=== PATIENT | female | born 1990 | race Caucasian/White ===

== ENCOUNTER 2018-12-11 09:09 | Inpatient (IN) ==
[2018-12-11] MEDS ORDERED: OXYTOCIN 30 UNITS/500 ML BAG IV PRN ×2 (10:39→18:37)
--- NOTE | 2018-12-11 10:46 | Obstetrical Progress Note ---
Date of Service December 11, 2018 Subjective Admit Note 28 F P2002 at 40.4 weeks admitted for induction of labor for post-dates . GBS is negative. Cervix 3/70/-2/vertex/mid-position/soft. EFW 7.5 lbs. AROM with clear fluid. Will anticipate normal delivery. Results & Data Vital Signs (Past 12 Hours) Vital Signs Temp Pulse Resp BP 12/11/18 09:29 36.5 C 72 20 127/81 12/11/18 09:19 72 127/81 12/11/18 09:16 36.5 C 20
[2018-12-11 11:16] LABS: Hematocrit (blood only) 38.1 % (37-47); Hemoglobin 12.8 g/dL (12.0-16.0); Mean Corpuscular Hemoglobin 30.8 pg (25-34); Mean Corpuscular Volume 91.6 fL (80-100); Mean Platelet Volume 10.1 fL (7.4-10.4); Platelet Count 239 K/uL (130-400); RDW Coefficient of Variation 14.1 % (11.5-14.5); Red Blood Count 4.16 M/uL (4.2-5.4); White Blood Count 7.12 K/uL (4.8-10.8)
[2018-12-11 11:22] LABS: Mean Corpuscular Hgb Conc 33.6 g/dL (32-36)
--- NOTE | 2018-12-11 14:30 | Obstetrical Progress Note ---
Date of Service December 11, 2018 Physical Exam Genitourinary: Manual OB Exam: + cervical dilation 5 cm, + cervical effacement 70% and + station -2 OB Exam Monitor Tracing: + external FHT monitor used, + external uterine monitor used and + category I Results & Data Vital Signs (Past 12 Hours) Vital Signs Temp Pulse Resp BP 12/11/18 14:21 36.6 C 75 20 124/71 12/11/18 11:53 36.6 C 65 20 118/75 12/11/18 09:29 36.5 C 72 20 127/81 12/11/18 09:19 72 127/81 12/11/18 09:16 36.5 C 20
--- NOTE | 2018-12-11 17:09 | Obstetrical Progress Note ---
Date of Service December 11, 2018 Physical Exam Genitourinary: Manual OB Exam: + cervical dilation 6 cm, + cervical effacement 90% and + station -1 OB Exam Monitor Tracing: + external FHT monitor used and + external uterine monitor used Results & Data Vital Signs (Past 12 Hours) Vital Signs Temp Pulse Resp BP 12/11/18 16:06 36.9 C 86 20 122/70 12/11/18 14:21 36.6 C 75 20 124/71 12/11/18 11:53 36.6 C 65 20 118/75 12/11/18 09:29 36.5 C 72 20 127/81 12/11/18 09:19 72 127/81 12/11/18 09:16 36.5 C 20
[2018-12-11] MEDS ORDERED: fentaNYL citrate 100 MCG/2 ML VIAL ONE (18:36)
[2018-12-11] MEDS ORDERED: BUPIVACAINE 0.25% 30 ML VIAL ONE (18:36)
[2018-12-11] MEDS ORDERED: ePHEDrine sulfate 50 MG/ML AMP ONE (18:36)
[2018-12-11] MEDS ORDERED: fentaNYL 2MCG/ML ROPIV 1.25MG/ML 100 ML BAG EPI ONE (18:37)
[2018-12-11] MEDS ORDERED: fentaNYL 2MCG/ML ROPIV 1.25MG/ML 100 ML BAG EPI PRN (18:41)
[2018-12-11] MEDS ORDERED: NALOXONE HCL 1 MG in SODIUM CHLORIDE 0.9% 1000ML 1,000 ML IV PRN (18:41)
[2018-12-11] MEDS ORDERED: NALOXONE HCL 0.4 MG/1 ML VIAL/CARP IV PRN (18:41)
[2018-12-11] MEDS ORDERED: DiphenhydrAMINE HCL 50 MG/ML VIAL IV PRN (18:41)
[2018-12-11] MEDS ORDERED: ePHEDrine sulfate 50 MG/ML AMP IV PRN (18:41)
[2018-12-11] MEDS ORDERED: NALBUPHINE HCL INJ 10 MG/ML AMP IV PRN (18:41)
--- NOTE | 2018-12-11 18:43 | Anesthesiology Consultation ---
Date of Service December 11, 2018 Assessment & Plan (1) Encounter for pre-operative examination: Chart Review Chart Review: Patient NOT seen in Pre Admission Testing and Acceptable Risk for Labor Epidural Consults Requested none History Height/Weight Height: 5 ft 7 in Weight: 83.007 kg Allergies Allergy/AdvReac Type Severity Reaction Status Date / Time No Known Allergies Allergy Unverified 12/11/18 07:22 Medications Home Medications Medication Instructions Recorded Confirmed Last Taken PNV cmb#95-ferrous fumarate-FA 1 tab PO DAILY 12/11/18 12/11/18 12/11/18 07:00 [] Past Medical History healthy Exercise / Class Metabolic Activity II 4-5 Yardwork/Stairs/Walk up hill Past Family History Family History Father Myocardial infarction Past Surgical History Surgical History Hx of LASIK 2018 Past Anesthesia History No Hx of Anesthesia Complications and No Family Hx of Anesthesia Complications History of PONV No Hx of PONV and No Hx of Motion Sickness Social History Smoking Status: Never smoker Do You Dip or Chew Tobacco: No Hx Alcohol Use: No Hx Substance Use: No Physical Exam Vital Signs Last Vital Signs Temp 36.9 C 12/11/18 18:25 Pulse 78 12/11/18 19:06 Resp 20 12/11/18 18:25 BP 127/72 12/11/18 19:06 Pulse Ox 98 12/11/18 19:06 Testing Laboratory Results 12/11/18 10:59
[2018-12-11] MEDS ORDERED: LACTATED RINGER'S 1,000 ML IV ONE (18:55)
--- NOTE | 2018-12-11 20:14 | Obstetrical Progress Note ---
Date of Service December 11, 2018 Physical Exam Genitourinary: OB Exam Abdomen: + vertex Manual OB Exam: + cervical dilation 8 cm, + cervical effacement 100%, + station 0 and + amniotic fluid OB Exam Monitor Tracing: + external FHT monitor used, + external uterine monitor used, + category I and + normal FHT variability Results & Data Vital Signs (Past 12 Hours) Vital Signs Temp Pulse Resp BP Pulse Ox 12/11/18 20:06 92 H 99 12/11/18 20:05 92 H 91 12/11/18 20:01 80 98 12/11/18 19:58 88 128/66 12/11/18 19:56 89 100 12/11/18 19:51 91 H 100 12/11/18 19:46 80 100 12/11/18 19:45 20 12/11/18 19:42 75 128/66 12/11/18 19:41 82 99 12/11/18 19:38 81 93 12/11/18 19:36 75 125/72 99 12/11/18 19:35 36.7 C 20 12/11/18 19:31 77 132/72 99 12/11/18 19:30 18 12/11/18 19:26 72 126/72 98 12/11/18 19:25 18 12/11/18 19:21 77 98 12/11/18 19:20 80 18 128/69 12/11/18 19:18 68 141/82 H 12/11/18 19:16 76 134/77 98 12/11/18 19:14 74 20 131/74 12/11/18 19:12 77 20 126/68 12/11/18 19:11 77 100 12/11/18 19:10 87 20 127/67 12/11/18 19:08 80 125/68 12/11/18 19:06 78 127/72 98 12/11/18 19:04 80 133/72 12/11/18 19:01 89 99 12/11/18 18:56 84 97 12/11/18 18:51 74 98 12/11/18 18:46 85 97 12/11/18 18:25 36.9 C 86 20 110/57 L 12/11/18 17:50 37.0 C 88 16 117/66 12/11/18 16:06 36.9 C 86 20 122/70 12/11/18 14:21 36.6 C 75 20 124/71 12/11/18 11:53 36.6 C 65 20 118/75 12/11/18 09:29 36.5 C 72 20 127/81 12/11/18 09:19 72 127/81 12/11/18 09:16 36.5 C 20
[2018-12-11] MEDS ORDERED: Nursing to Pharmacy Communication ONE (21:44)
[2018-12-11] MEDS ORDERED: LACTATED RINGER'S 1,000 ML IV SCH (22:00)
--- NOTE | 2018-12-12 00:25 | Delivery Summary ---
Vaginal Delivery Summary Date of Service December 12, 2018 Vaginal Delivery Summary Delivery Note live male CATALINA over intact perineum with intact perineum. Delayed cord clamping followed by cord blood and spontaneous delivery of intact placenta. No tears. EBL 100 ml. Final sponge and instrument count are correct. Straight cath 500 ml clear urine. Mom and baby stable.
[2018-12-12] MEDS ORDERED: HYDROCORTISONE ACETATE 25 MG SUPP PR PRN (00:27)
[2018-12-12] MEDS ORDERED: DIPHTHERIA/TETANUS/PERTUSSIS 0.5 ML SYR/VIAL IM ONE (00:27)
[2018-12-12] MEDS ORDERED: ACETAMINOPHEN 325 MG TAB PO PRN (00:27)
[2018-12-12] MEDS ORDERED: OXYTOCIN 30 UNITS/500 ML BAG IV PRN (00:27)
[2018-12-12] MEDS ORDERED: SUPERCREAM 0.870% 15 GM JAR EXT PRN (00:27)
--- NOTE | 2018-12-12 02:28 | Anesthesia Procedure Note ---
Date of Service December 12, 2018 Anesthesia Post Epidural Note Vital Signs Vital Signs: Temp Pulse Resp BP Pulse Ox 36.7 C 77 20 126/64 95 12/12/18 00:15 12/12/18 02:18 12/12/18 01:45 12/12/18 02:18 12/12/18 00:07 Pain Intensity Bilateral Back: Pain Intensity: 0 Notes Mental Status: alert / awake / arousable Patient Amnestic to Procedure: No Nausea / Vomiting: adequately controlled Pain: adequately controlled Airway Patency, RR, SpO2: stable & adequate BP & HR: stable & adequate Hydration State: stable & adequate Neuraxial Anesthesia: was administered and sensory block is resolving Anesthetic Complications: no major complications apparent and Pt Satisfied with anesthetic care Epidural: Removed without complications and With tip intact
[2018-12-12] MEDS: BENZOCAINE 20% AER SPR 82.5 GM CAN EXT PRN ×2 (02:36→13:40)
[2018-12-12] MEDS: IBUPROFEN 600 MG TAB PO PRN ×2 (04:29→21:17)
[2018-12-12] MEDS: DOCUSATE SODIUM 100 MG CAP PO SCH ×2 (07:55→21:11)
[2018-12-12] MEDS: PRENATAL VITAMIN 1 TAB PO SCH (07:55)
[2018-12-12] MEDS ORDERED: NON-FORMULARY MEDICATION (Pnv Cmb#95-Ferrous Fumarate-Fa [Prenatal] 1 TAB) PO SCH (09:00)
--- NOTE | 2018-12-12 09:07 | Obstetrical Progress Note ---
Date of Service December 12, 2018 Subjective Attempted to see her this morning, she was not in the room I came back , now she is in her room but on the phone and asked me to come later Results & Data Vital Signs (Past 12 Hours) Vital Signs Temp Pulse Pulse Resp BP BP Pulse Ox 12/12/18 07:45 36.6 C 76 18 105/64 97 12/12/18 03:50 36.9 C 68 20 116/72 12/12/18 02:50 36.9 C 77 20 126/64 12/12/18 02:18 77 126/64 12/12/18 02:15 77 20 126/64 12/12/18 01:48 73 133/63 12/12/18 01:45 73 20 133/63 12/12/18 01:18 75 121/56 L 12/12/18 01:15 75 18 121/56 L 12/12/18 01:00 76 20 157/74 H 12/12/18 00:58 76 157/74 H 12/12/18 00:45 80 20 110/53 L 12/12/18 00:43 80 110/53 L 12/12/18 00:30 87 18 133/62 12/12/18 00:28 87 133/62 12/12/18 00:15 36.7 C 87 20 133/62 12/12/18 00:07 100 H 95 12/12/18 00:02 108 H 96 12/11/18 23:59 125 H 94 12/11/18 23:57 128 H 75 L 12/11/18 23:53 129 H 82 L 12/11/18 23:52 123 H 93 12/11/18 23:47 118 H 93 12/11/18 23:42 119 H 84 L 12/11/18 23:37 114 H 96 12/11/18 23:32 117 H 94 12/11/18 23:31 114 H 90 12/11/18 23:29 112 H 157/64 H 12/11/18 23:26 108 H 97 12/11/18 23:21 104 H 98 12/11/18 23:20 110 H 92 12/11/18 23:16 108 H 98 12/11/18 23:13 110 H 153/73 H 12/11/18 23:11 110 H 96 12/11/18 23:06 116 H 97 12/11/18 23:01 99 H 96 12/11/18 23:00 20 12/11/18 22:56 109 H 96 12/11/18 22:51 104 H 97 12/11/18 22:46 105 H 96 12/11/18 22:41 118 H 97 12/11/18 22:36 104 H 96 12/11/18 22:31 113 H 97 12/11/18 22:27 36.7 C 20 12/11/18 22:26 91 H 97 12/11/18 22:24 114 H 93 12/11/18 22:21 98 H 98 12/11/18 22:16 108 H 97 12/11/18 22:13 90 127/65 12/11/18 22:11 99 H 98 12/11/18 22:08 96 H 93 12/11/18 22:06 90 98 12/11/18 22:01 90 98 12/11/18 22:00 18 12/11/18 21:56 87 97 12/11/18 21:51 91 H 97 12/11/18 21:46 91 H 97 12/11/18 21:44 87 110/67 12/11/18 21:41 89 96 12/11/18 21:36 93 H 96 12/11/18 21:31 95 H 98 12/11/18 21:30 18 12/11/18 21:29 96 H 134/76 12/11/18 21:26 94 H 97 12/11/18 21:21 107 H 99 12/11/18 21:16 88 98 12/11/18 21:13 103 H 127/75 12/11/18 21:11 89 98
--- NOTE | 2018-12-12 15:24 | Obstetrical Progress Note ---
Date of Service December 12, 2018 Subjective Patient is seen and examined. She feels well, no complaints. Likes to be discharged after MN ( 24 hours) Ambulating without dizziness Voiding without difficulty Tolerating regular diet with out N&V Bleeding is minimal No fever/ chills/ CP/ SOB/ N&V/ Leg pain Breast feeding without problems Vital Signs Temp Pulse Resp BP Pulse Ox 12/12/18 12:00 36.5 C 70 18 123/78 99 12/12/18 07:45 36.6 C 76 18 105/64 97 12/12/18 03:50 36.9 C 68 20 116/72 Lab Results 12/11/18 Range/Units 10:59 WBC 7.12 (4.8-10.8) K/uL RBC 4.16 L (4.2-5.4) M/uL Hgb 12.8 (12.0-16.0) g/dL Hct 38.1 (37-47) % MCV 91.6 (80-100) fL MCH 30.8 (25-34) pg MCHC 33.6 (32-36) g/dL RDW Std Deviation 47.0 H (36.4-46.3) fL RDW Coeff of Carmen 14.1 (11.5-14.5) % Plt Count 239 (130-400) K/uL MPV 10.1 (7.4-10.4) fL PE: General: Alert, orientedx3, NAD Abd: soft, NT, fundus firm, below Umbilicus Perineum intact, Lochia rubra minimal Ext; NT, no edema AP: 28 yo s/p , ppd# 1 VSS Afebrile doing well Continue routine care All questions were answered Discussed when to call D/C home after MN if baby would be discharged Results & Data Vital Signs (Past 12 Hours) Vital Signs Temp Pulse Resp BP Pulse Ox 12/12/18 12:00 36.5 C 70 18 123/78 99 12/12/18 07:45 36.6 C 76 18 105/64 97 12/12/18 03:50 36.9 C 68 20 116/72
[2018-12-12 18:24] LABS: Hematocrit (blood only) 36.2 % (37-47); Hemoglobin 12.3 g/dL (12.0-16.0)
[2018-12-13 06:28] LABS: Hemoglobin 11.4 g/dL (12.0-16.0); Mean Corpuscular Hemoglobin 31.1 pg (25-34); Mean Corpuscular Hgb Conc 33.5 g/dL (32-36); Mean Corpuscular Volume 92.6 fL (80-100); Mean Platelet Volume 10.1 fL (7.4-10.4); Platelet Count 245 K/uL (130-400); RDW Coefficient of Variation 14.3 % (11.5-14.5); Red Blood Count 3.67 M/uL (4.2-5.4)
[2018-12-13] MEDS: PRENATAL VITAMIN 1 TAB PO SCH (08:28)
[2018-12-13] MEDS: DOCUSATE SODIUM 100 MG CAP PO SCH (08:28)
--- NOTE | 2018-12-13 09:01 | Obstetrical Progress Note ---
Date of Service December 13, 2018 Assessment & Plan (1) Normal vaginal delivery: PPD #2 pt doing well d/c home with instructions Subjective Ambulation: ambulating normally Voiding: no voiding problems Passing Gas:: Yes Diet Tolerance:: regular diet Lochia:: Small Feeding Type:: breast feeding Review of Systems All systems reviewed & are unremarkable except as noted in HPI & below Physical Exam Constitutional WD/WN, vitals as above well developed and well nourished Eyes PERRL, conjunctivae normal, anicteric sclerae Neck trachea midline, no thyromegaly Respiratory normal respiratory effort, lungs clear to auscultation Auscultation: no crackles, no rales and no wheezes Cardiovascular RRR, no murmur, no edema Gastrointestinal (Abdomen) normal bowel sounds, soft, nontender, no hepatosplenomegaly Uterus is below umbilicus Musculoskeletal no cyanosis or clubbing, extremities motor strength 5/5 Skin no rashes, warm and dry Neurologic patellar DTR's 2+ bilat, sensation intact Psychiatric A+Ox3, euthymic affect Genitourinary normal external appearance Results & Data Vital Signs (Past 12 Hours) Vital Signs Temp Pulse Resp BP 12/12/18 23:40 36.6 C 70 20 104/65
[2018-12-13 18:38] VITALS: BP 125/80; PULSE 82; TEMP 99; O2SAT 98
[2018-12-13] MEDS ORDERED: bisacodyL 5 MG TABEC PO SCH (20:00)
[2018-12-14] MEDS ORDERED: bisacodyL 10 MG SUPP PR PRN (07:00)
== END 2018-12-13 17:45 | disposition home or self-care (01) | DRG 807 ==
LOC: 4S1 09:09 → 4S2 12-12 02:50

== ENCOUNTER 2021-05-10 14:06 | Inpatient (IN) ==
[2021-05-10] MEDS ORDERED: OXYTOCIN 30 UNITS/500 ML BAG IV PRN ×3 (14:26→19:12)
--- NOTE | 2021-05-10 14:46 | History & Physical Report ---
Date of Service May 10, 2021 Assessment & Plan (1) : (2) Normal vaginal delivery: Plan: Will start Oxytocin, antibiotics and plans epidural. anticipate normal delivery Admission and Anticipated Discharge Date Admission Date: May 10, 2021 History of Present Illness Chief Complaint: labor stalled at home Primary Care Provider: JJ PCP 30 F [id number] EDC 05-16-21 by dates from carpet layer. Her entire was with the hoop maker machine and she presented to L&D at [facility] after hoop maker machine called with lack of progress over 5 hours. She has had no GBS swab or Covid testing. Patient states she went into labor yesterday at 2:30 PM with SROM at 8:30 PM clear fluid. Allergies Allergy/AdvReac Type Severity Reaction Status Date / Time No Known Allergies Allergy Unverified 12/11/18 07:22 Home Medications Medication Instructions Recorded Confirmed Type vit no.95-ferrous 1 tab PO DAILY 12/11/18 12/11/18 History fumarate 28 mg-folic acid 800 mcg tablet () Patient History Surgical History Hx of LASIK 2018 Family History Father Myocardial infarction Social History Smoking Status: Never smoker Hx Alcohol Use: No Hx Substance Use: No Preferred Language: Tuvaluan Communication Ability: Effective Christian Education Director Required: No Beliefs That Will Affect Care: None marital status: Current Living Situation: Spouse Feels Safe at Home: Yes Assistive Devices: None 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 Review of Systems All systems reviewed & are unremarkable except as noted in HPI & below Physical Exam Constitutional: WD/WN, vitals as above comfortable Eyes: PERRL, conjunctivae normal, anicteric sclerae Respiratory: normal respiratory effort, lungs clear to auscultation Cardiovascular: RRR, no murmur, no edema Skin: no rashes, warm and dry Neurologic: patellar DTR's 2+ bilat, sensation intact Psychiatric: A+Ox3, euthymic affect Genitourinary: no vaginal lesions, no adnexal mass normal external appearance OB Exam Abdomen: + fundal height and + vertex Manual OB Exam: + cervical dilation 7 cm and 8 cm, + cervical effacement 90%, + station -1 and + amniotic fluid clear OB Exam Monitor Tracing: + external FHT monitor used, + external uterine monitor used, + category I and + normal FHT variability She says she has been ruptured with clear fluid since 8:50 PM yesterday. Results & Data ([facility]) Vital Signs (Past 12 Hours) Vital Signs Pulse BP 05/10/21 14:15 90 133/63 Monitoring External Monitor Cat 1
[2021-05-10] MEDS: LACTATED RINGER'S 1,000 ML IV PRN ×2 (14:52→17:25)
[2021-05-10 14:53] LABS: Hematocrit (blood only) 35.5 % (37-47); Hemoglobin 12.1 g/dL (12.0-16.0); Mean Corpuscular Hemoglobin 30.8 pg (25-34); Mean Corpuscular Hgb Conc 34.1 g/dL (32-36); Mean Corpuscular Volume 90.3 fL (80-100); Mean Platelet Volume 9.7 fL (7.4-10.4); Platelet Count 259 K/uL (130-400); RDW Coefficient of Variation 13.9 % (11.5-14.5); RDW Standard Deviation 46.4 fL (36.4-46.3); Red Blood Count 3.93 M/uL (4.2-5.4); White Blood Count 17.45 K/uL (4.8-10.8)
[2021-05-10] MEDS ORDERED: SODIUM CHLORIDE 0.9% INJ 10 ML VIAL ONE (14:56)
[2021-05-10] MEDS ORDERED: ePHEDrine sulfate 50 MG/ML AMP ONE (14:56)
[2021-05-10] MEDS ORDERED: BUPIVACAINE 0.25% 30 ML VIAL ONE (14:57)
[2021-05-10] MEDS ORDERED: fentaNYL citrate 100 MCG/2 ML VIAL ONE (14:57)
[2021-05-10] MEDS ORDERED: fentaNYL 2MCG/ML ROPIVACAINE 1.25MG/ML 100 ML BAG EPI ONE (14:57)
[2021-05-10] MEDS ORDERED: PENICILLIN G POTASSIUM 6 MU in DEXTROSE 5% 250 ML IV ONE (15:00)
[2021-05-10] MEDS ORDERED: NALOXONE HCL 1 MG in SODIUM CHLORIDE 0.9% 1000ML 1,000 ML IV PRN (17:14)
[2021-05-10] MEDS ORDERED: NALOXONE HCL 0.4 MG/1 ML VIAL/CARP IV PRN (17:14)
[2021-05-10] MEDS ORDERED: fentaNYL 2MCG/ML ROPIVACAINE 1.25MG/ML 100 ML BAG EPI PRN (17:14)
[2021-05-10] MEDS ORDERED: ePHEDrine sulfate 50 MG/ML AMP IV PRN (17:14)
[2021-05-10] MEDS ORDERED: diphenhydrAMINE 50 MG/ML VIAL IV PRN (17:14)
[2021-05-10] MEDS ORDERED: NALBUPHINE HCL INJ 10 MG/ML AMP IV PRN (17:14)
[2021-05-10] MEDS ORDERED: ONDANSETRON INJ 2 MG/ML 2 ML VIAL IV PRN (17:14)
--- NOTE | 2021-05-10 17:15 | Anesthesiology Consultation ---
Date of Service May 10, 2021 Assessment & Plan Chart Review Chart Review: Patient NOT seen in Pre Admission Testing and Acceptable Risk for Labor Epidural Consults Requested none ASA ASA2 Proposed Anesthesia Anesthesia Type: Labor Epidural Risk / Benefits Reviewed With: PT / POA / Parent / Guardian, Accepts Plan and Informed Consent Obtained History Height/Weight Height: 5 ft 6 in Weight: 86.035 kg Allergies Allergy/AdvReac Type Severity Reaction Status Date / Time No Known Allergies Allergy Verified 05/10/21 16:55 Medications Home Medications Medication Instructions Recorded Confirmed Last Taken prenat.vits,amy,kok-bddi-sjfdf 1 tab PO DAILY 05/10/21 05/10/21 05/09/21 08:00 Active Medications Generic Name Dose Route Start Last Admin Trade Name Freq PRN Reason Stop Dose Admin Lactated Ringer's 1,000 mls @ 125 mls/hr 05/10/21 14:26 05/10/21 15:44 Lr IV 05/12/21 14:25 125 mls/hr .Q8H PRN Infusion L&D Protocol Protocol Oxytocin 30 units in 500 mls @ 3 mls/hr 05/10/21 14:41 05/10/21 16:47 Pitocin IV 05/12/21 14:40 0.18 units/hr .Q24H PRN 3 mls/hr Labor Induction/Augmentation Titration Protocol 0.18 UNITS/HR Exercise / Class Metabolic Activity II 4-5 Yardwork/Stairs/Walk up hill Past Family History Family History Father Myocardial infarction Past Surgical History Surgical History Hx of LASIK 2018 Past Anesthesia History No Hx of Anesthesia Complications and No Family Hx of Anesthesia Complications History of PONV No Hx of PONV and No Hx of Motion Sickness Social History Smoking Status: Never smoker Hx Alcohol Use: No Hx Substance Use: No substance use type: does not use Physical Exam Vital Signs Last Vital Signs Temp 36.6 C 05/10/21 14:14 Pulse 93 H 05/10/21 17:09 Resp 18 05/10/21 14:14 BP 111/59 L 05/10/21 17:09 Pulse Ox 100 05/10/21 17:09 ENMT Mouth: no dentition abnormality Thyromental Distance: > or= 3.5 Finger Breadths Mallampati Class: II Neck normal visual inspection Respiratory normal respiratory effort Auscultation: lungs clear to auscultation bilaterally Cardiovascular Rate/Rhythm: regular rate and regular rhythm Psychiatric Orientation: alert Testing Laboratory Results 05/10/21 14:40
[2021-05-10] MEDS ORDERED: PENICILLIN G POTASSIUM 3 MU in DEXTROSE 5% 100 ML IV PRN (17:43)
--- NOTE | 2021-05-10 18:34 | Delivery Summary ---
Vaginal Delivery Summary Date of Service May 10, 2021 Vaginal Delivery Summary Delivery Note live male CATALINA over intact perineum with delayed cord clamping and Apgars 7/9 weight pending. Cord blood obtained followed by spontaneous delivery of intact placenta. No tears. EBL 100 ml. Final sponge and instrument count are correct. Mom and baby stable.
[2021-05-10] MEDS ORDERED: ACETAMINOPHEN 325 MG TAB PO PRN (19:12)
[2021-05-10] MEDS ORDERED: DIPHTHERIA/TETANUS/PERTUSSIS 0.5 ML SYR/VIAL IM ONE (19:12)
[2021-05-10] MEDS ORDERED: HYDROCORTISONE ACETATE 25 MG SUPP PR PRN (19:12)
[2021-05-10] MEDS ORDERED: BENZOCAINE 20% AER SPR 82.5 GM CAN EXT PRN (19:12)
[2021-05-10] MEDS ORDERED: IBUPROFEN 600 MG TAB PO PRN (19:12)
[2021-05-10] MEDS ORDERED: bisacodyL 10 MG SUPP PR PRN (19:12)
[2021-05-10] MEDS: DOCUSATE SODIUM 100 MG CAP PO SCH (21:55)
--- NOTE | 2021-05-11 07:00 | Obstetrical Progress Note ---
Date of Service May 11, 2021 Assessment & Plan (1) Normal course: Continue routine PP care D/c home today at 24hrs Subjective Ambulation: ambulating normally Voiding: no voiding problems Passing Gas:: Yes Diet Tolerance:: regular diet Lochia:: Small Feeding Type:: breast feeding Current Pain Level(1-10): 1 Doing well, wants to go home today at 24hrs. Physical Exam Constitutional WD/WN, vitals as above Respiratory normal respiratory effort, lungs clear to auscultation Gastrointestinal (Abdomen) normal bowel sounds, soft, nontender, no hepatosplenomegaly Results & Data ([facility]) Vital Signs (Past 12 Hours) Vital Signs Temp Pulse Pulse Resp BP BP Pulse Ox 05/11/21 03:10 36.4 C L 78 18 116/72 05/11/21 00:40 36.8 C 75 16 105/64 05/10/21 21:00 36.7 C 84 16 107/67 97 05/10/21 20:41 90 105/50 L 05/10/21 20:25 18 05/10/21 20:24 84 101/53 L 05/10/21 20:09 81 103/55 L 05/10/21 19:55 85 18 101/52 L 05/10/21 19:25 36.8 C 81 18 109/57 L 05/10/21 19:10 18 Laboratory Results Morning CBC pending
[2021-05-11 07:04] LABS: Hematocrit (blood only) 33.3 % (37-47); Hemoglobin 11.1 g/dL (12.0-16.0); Mean Corpuscular Hemoglobin 30.7 pg (25-34); Mean Corpuscular Hgb Conc 33.3 g/dL (32-36); Mean Platelet Volume 10.1 fL (7.4-10.4); Platelet Count 291 K/uL (130-400); RDW Coefficient of Variation 14.3 % (11.5-14.5); RDW Standard Deviation 48.1 fL (36.4-46.3); Red Blood Count 3.62 M/uL (4.2-5.4); White Blood Count 13.59 K/uL (4.8-10.8)
[2021-05-11] MEDS ORDERED: PRENATAL VITAMIN 1 TAB PO SCH (08:00)
[2021-05-11] MEDS: DOCUSATE SODIUM 100 MG CAP PO SCH (08:14)
[2021-05-11] MEDS ORDERED: NON-FORMULARY MEDICATION (Prenat.Vits,Cal,Min-Iron-Folic Tablet) PO SCH (09:00)
[2021-05-11] MEDS ORDERED: bisacodyL 5 MG TABEC PO SCH (20:00)
== END 2021-05-11 18:50 | disposition home or self-care (01) | DRG 807 ==
LOC: OPB 14:06 → 4S1 14:09 → 4S2 21:14